=== PATIENT | male | born 1995 | race Caucasian/White ===

== ENCOUNTER 2016-11-10 04:07 | Emergency (ER) | payer OTHER ==
[~2016-11-10] VITALS: Ht 180.3 cm; Wt 104.3 kg
[2016-11-10 04:24] VITALS: BP 150/99
== END 2016-11-10 04:28 ==
LOC: ER 04:11
DX: Z00.8 Encounter for other general examination (principal); F17.210 Nicotine dependence, cigarettes, uncomplicated; V49.9XXA Car occupant (driver) (passenger) injured in unspecified traffic accident, initial encounter; Y93.89 Activity, other specified; Y99.8 Other external cause status; Y92.89 Other specified places as the place of occurrence of the external cause

== ENCOUNTER 2025-08-09 20:56 | Emergency (ER) | payer MEDICAID, OTHER ==
[~2025-08-09] VITALS: Ht 180.3 cm; Wt 130.0 kg
--- NOTE | 2025-08-09 22:07 | DVH ---
CLINICAL INDICATION: LEFT SHOULDER PAIN TECHNIQUE: 2 radiographic views of the left shoulder were obtained. Comparison: None FINDINGS/IMPRESSION: There is no evidence of acute fracture or dislocation. The visualized joint space is well maintained. The alignment is anatomical. There is no radiopaque foreign body.
[2025-08-10 00:40] VITALS: BP 149/90; PULSE 79; RESP 17; TEMP 98.2; O2SAT 99
[2025-08-10] MEDS ORDERED: ACET500T58 PO (00:40)
[2025-08-10] MEDS ORDERED: CYCL-837 PO (00:40)
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
[2025-08-10] MEDS: HYDROcodone-ACET 5/325MG TAB PO ONE (00:45)
--- NOTE | 2025-08-10 01:13 | DVH ---
EXAM: CT CERVICAL WITHOUT CONTRAST HISTORY: neck pain COMPARISON: None CTDIvol 22.09 mGy, DLP 558.68 mGy*cm. TECHNIQUE: Multiple axial CT images of the spine were obtained using bone algorithm. Axial and guerra l reformatting was done. Bone and soft tissue windows were reviewed. FINDINGS: No evidence of vertebral fracture or compresison deformity. Straightening of normal lordotic curvature without listhesis. Normal alignment of the craniocervical junction. No significant spondylosis. No acute finding of the imaged intracranial contents or neck soft tissues. Partially visualized left proximal clavicle fracture and hematoma. Simple density subcutaneous cystic lesion superior to the ri ght clavicle measuring 3.4 cm. IMPRESSION: 1. No acute fracture of the cervical spine. 2. Partially visualized left proximal clavicle fracture and hematoma. Dedicated clavicle radiographs recommended. 3. Simple appearing subdermal cystic 3.4 cm lesion in the right supraclavicular soft tissues, correla te with physical exam.
== END 2025-08-10 01:48 | disposition home or self-care (01) ==
LOC: ER 20:56
DX: S42.002A Fracture of unspecified part of left clavicle, initial encounter for closed fracture (principal); S16.1XXA Strain of muscle, fascia and tendon at neck level, initial encounter; F17.210 Nicotine dependence, cigarettes, uncomplicated; V29.99XA Rider (driver) (passenger) of other motorcycle injured in unspecified traffic accident, initial encounter; Y93.89 Activity, other specified; Y92.89 Other specified places as the place of occurrence of the external cause; Y99.8 Other external cause status
CPT/HCPCS: 72125; 73030